=== PATIENT | female | born 1995 | race Caucasian/White ===

== ENCOUNTER → 2020-02-18 15:22 | Outpatient (CLI) | payer OTHER, SELFPAY ==
--- NOTE | 2020-02-18 15:24 | DI.US.S_ITS ---
PROCEDURE: US OB >= 14 WEEKS FETUS INDICATIONS: 20 WEEK ANATOMY OUTSIDE/PRIOR DATING DATA: Last menstrual period (LMP): 10/05/19. LMP-based estimated date of delivery (VAMSI): 07/12/20. First dating scan (date and location): 02/18/20. Estimated date of delivery (VAMSI) from first dating scan: 07/09/20. TECHNIQUE: Real-time scanning was performed of the fetus, with image documentation and biometric measurements. COMPARISON: None. FINDINGS: General: A single living intrauterine gestation is present. Presentation: Vertex. Placenta: Placental position is anterior, without previa. Amniotic fluid index: 12.4 cm, normal range is 5-24 cm. heart rate: 152 beats per minute. Maternal cervical canal: 3.4 cm long. Normal lower limit is 2.5 cm. biometrics: Biparietal diameter: 20 weeks 0 days Head circumference: 19 weeks 6 days Abdominal circumference: 19 weeks 4 days Femur length: 19 weeks 5 days Estimated gestational age from initial scan: not applicable. Composite gestational age from present scan: 19 weeks 5 days Estimated weight and percentile: 307 g; 69 percentile Measurement variability for biometric dating: +/- 7 days from 14 weeks to 15 weeks 6 days gestation, +/- 10 days from 16 weeks to 21 weeks 6 days gestation, +/- 2 weeks from 22 weeks to 27 weeks 6 days gestation, +/- 3 weeks for 28 weeks gestation or later. weight reference: 4500 g or EFW >90/95% is considered macrosomia or large for gestational age. EFW <10% is small for gestational age. EFW 5% or less is considered intra-uterine growth restriction. Anatomic survey: Neuro: Ventricles are non-dilated at less than 10 mm. Cisterna magna is normal at 3-11 mm. Cerebellum is normal in size and morphology. Nuchal skin fold: Normal at less than 6 mm between 14-21 weeks gestational age. Face: Nose and lips, facial profile are normal. Spine: No evidence for spina bifida. Heart: 4-chambered heart is present, with normal ventricular outflow tracts. Diaphragm: Diaphragm is intact. Stomach: Left-sided stomach is present. Kidneys: No hydronephrosis. Normal is less than 5 mm in 2nd trimester, less than 7 mm in 3rd trimester. Cord: 3-vessel cord has orthotopic insertion. Bladder: Normal in size. Extremities: All 4 extremities identified. IMPRESSION: Single living IUP with composite age of 19 weeks 5 days corresponding to ultrasound VAMSI of 07/09/20. Normal anatomic survey. Dictated by: eDvyn DALYE Interpreted: Promise Hope MD on 02/18/2020 at 17:12 Approved by: Promise Hope M.D. on 02/18/2020 at 17:45
== END ==
PROVIDERS: Referring Provider Obstetrics & Gynecology; Visit Provider Obstetrics & Gynecology
DX: Z34.82 Encounter for supervision of other normal pregnancy, second trimester (principal); Z3A.19 19 weeks gestation of pregnancy
CPT/HCPCS: 76811

== ENCOUNTER → 2020-03-25 10:00 | Oncology outpatient (ONC) | payer OTHER, SELFPAY ==
[2020-02-28 13:24] VITALS: BP 103/56; PULSE 86; RESP 18; TEMP 36.8; O2SAT 99
[2020-02-28] MEDS: ONDANSETRON 4 MG/2 ML INJ IV (13:42)
[2020-02-28] MEDS: LACTATED RINGERS 1,000 ML 1000 ML IV (13:42)
[2020-03-13] MEDS: LACTATED RINGERS 1,000 ML 1000 ML IV (14:48)
[2020-03-13 15:14] VITALS: BP 100/63; PULSE 87; RESP 18; TEMP 36.7; O2SAT 100
[2020-03-25] MEDS: ONDANSETRON 4 MG/2 ML INJ IV (10:19)
[2020-03-25] MEDS: LACTATED RINGERS 1,000 ML 1000 ML IV (10:19)
[2020-03-25 10:28] VITALS: BP 101/57; PULSE 93; RESP 18; TEMP 36.9; O2SAT 99
== END ==
PROVIDERS: Referring Provider Obstetrics & Gynecology; Visit Provider Obstetrics & Gynecology
DX: O21.0 Mild hyperemesis gravidarum (principal)
CPT/HCPCS: 96360; 96361; 96374; 96375; J2405

== ENCOUNTER → 2020-04-17 10:30 | Outpatient (CLI) | payer OTHER, SELFPAY ==
[2020-04-17 12:42] LABS: Hematocrit 32.5 % (36-46); Hemoglobin 11.2 g/dL (12.0-16.0)
[2020-04-17 13:17] LABS: GTT (PREG) 1 Hour PP 50gm Dose 98 mg/dL (76-139)
== END ==
PROVIDERS: Referring Provider Obstetrics & Gynecology; Visit Provider Obstetrics & Gynecology
DX: Z34.02 Encounter for supervision of normal first pregnancy, second trimester (principal); Z3A.25 25 weeks gestation of pregnancy
CPT/HCPCS: 36415; 82950; 85014; 85018; 86850

== ENCOUNTER 2020-04-21 09:21 | Outpatient (CLI) | payer OTHER, SELFPAY ==
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
== END 2020-04-21 09:55 | disposition home or self-care (01) ==
LOC: LABOR 09:59 → OB 12:29
PROVIDERS: PCP Obstetrics & Gynecology; Referring Provider Obstetrics & Gynecology; Visit Provider Obstetrics & Gynecology
DX: O36.8130 Decreased fetal movements, third trimester, not applicable or unspecified (principal); Z3A.28 28 weeks gestation of pregnancy
CPT/HCPCS: 59025; G0378; G0379

== ENCOUNTER → 2020-06-11 13:52 | Outpatient (CLI) | payer OTHER, SELFPAY ==
[2020-06-12 21:14] LABS: COVID19 Sendout Not Detected (Not Detect)
== END ==
PROVIDERS: PCP Obstetrics & Gynecology; Visit Provider Nurse Practitioner
DX: Z11.59 Encounter for screening for other viral diseases (principal); R50.9 Fever, unspecified
CPT/HCPCS: 87070; 87635

== ENCOUNTER 2020-06-11 14:39 | Outpatient (CLI) | payer OTHER, SELFPAY | END 2020-06-11 15:30 | disposition home or self-care (01) | LOC: LABOR 15:24 → OB 06-12 14:49 | PROVIDERS: PCP Obstetrics & Gynecology; Referring Provider Obstetrics & Gynecology; Visit Provider Obstetrics & Gynecology | DX: O36.8130 Decreased fetal movements, third trimester, not applicable or unspecified (principal); O47.03 False labor before 37 completed weeks of gestation, third trimester; Z3A.35 35 weeks gestation of pregnancy; Z11.59 Encounter for screening for other viral diseases; R50.9 Fever, unspecified | CPT/HCPCS: 59025; 87070; 87635; G0378; G0379 ==

== ENCOUNTER → 2020-06-16 11:44 | Outpatient (CLI) | payer OTHER, SELFPAY ==
[2020-06-17 07:40] LABS: Strep Grp B PCR NEG for Grp B Strep
== END ==
PROVIDERS: PCP Obstetrics & Gynecology; Visit Provider Obstetrics & Gynecology
DX: Z34.03 Encounter for supervision of normal first pregnancy, third trimester (principal); Z3A.36 36 weeks gestation of pregnancy
CPT/HCPCS: 87653

== ENCOUNTER 2020-06-23 13:35 | Inpatient (IN) | payer OTHER, SELFPAY ==
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
[2020-06-23 14:50] LABS: Add Manual Diff / Slide Review NO; Basophils Absolute Auto 100 /uL (0-100); Basophils Percent Auto 0.6 % (0-2); Eosinophils Absolute Auto 100 /uL (0-450); Eosinophils Percent Auto 0.7 % (2-4); Hematocrit 32.2 % (36-46); Hemoglobin 11.2 g/dL (12.0-16.0); Lymphocytes Absolute Auto 1800 /uL (1100-4500); Lymphocytes Percent Auto 16.7 % (25-40); Mean Corpuscular HGB Conc 34.7 % (30-36); Mean Corpuscular Hemoglobin 29.7 PG (26-34); Mean Corpuscular Volume 85.6 fL (80-100); Monocytes Absolute Auto 800 /uL (0-900); Monocytes Percent Auto 7.4 % (3-14); Neutrophils Absolute Auto 8100 /uL (1500-7000); Neutrophils Percent Auto 74.6 % (50-75); Platelet Count 325 X10^3/uL (150-400); Red Blood Cell Count 3.76 X10^6/uL (4.0-5.2); Red Cell Distribution Width 13.3 % (11.6-14.8); White Blood Cell Count 10.8 X10^3/uL (4.5-11.0)
--- NOTE | 2020-06-23 18:06 | PM.OBPNLAB ---
Date/Time Date Patient Seen: 06/23/20 Time Patient Seen: 17:15 Pain Control Pain control: tolerating well Pelvic Exam Dilation (cm): 1 Effacement (%): 75 station: -2 Contractions Contractions on admission: irregular Contraction intensity: Moderate Status status: Category l Heart Rate Baseline: 135 Monitor Accelerations: Present Monitor Decelerations: Absent Monitor Variability: Moderate Assessment and Plan Comments: This patient continues to have dark red vaginal bleeding on wiping, with a decreased but still moderate amount of blood on repeat cervical exam. No cervical changes been Rachel, and her contractions are spacing somewhat though she reports irregular cramping throughout her lower abdomen. status remains highly reassuring, and we discussed starting a clear liquid diet. We discussed the patient remaining in-house overnight for continuous monitoring, and discussed that she has may still require emergent delivery if this is in fact an abruption that progresses vs. Pre term labor. The patient and her partner vocalized understanding, and are happy with this plan. - cEFM, toco overnight - alert attending physician immediately if change in maternal or status
[2020-06-24] VITALS (7 sets, daily range): BP systolic 91–101; BP diastolic 50–62; PULSE 70–160; RESP 10–40; TEMP 36.2–36.4; O2SAT 95–98
--- NOTE | 2020-06-24 | PATH_ITS ---
[place] Accession Number: [id number] . 01 Material submitted: . placenta - PLACENTA . 01 Clinical history: . NST . 02 Diagnosis: Placenta: . Placenta parenchyma: Griffiths placenta, weight 930 grams. Patchy disruption of cotyledons, suggestive of possible incomplete placenta by gross examination. Variable chorionic villous maturation. Mild to moderate intra and intervillous fibrin is present. Fibrin clot (1.5 cm), involves less than 5% of the placental disc volume. . Membranes: Circummarginate insertion. Rare neutrophils present, suggestive of possible very mild, focal chorioamnionitis. . Umbilical cord: Eccentrically inserted. 28 cm in length. Three vessels present. No funisitis identified. MRV 06/26/2020 1051 Local . 02 Electronically signed: . Lana Dunlap MD, Pathologist NPI- [id number] . 01 Gross description: . The specimen is received in formalin, labeled placenta and consists of a 930 gram, 20.0 x 18.0 x 3.0 cm griffiths placenta with an eccentrically inserted 28 cm in length x 1.5 cm in diameter three vessel umbilical cord without true knots. The membranes are clement-pink, translucent and insert circummarginate. The surface is sears-blue without excrescences. The maternal surface is red-brown with a 2.5 x 1.5 cm irregular area of disrupted cotyledons. The remaining cotyledons are intact. Sectioning reveals red-brown cut surfaces with a 1.5 x 1.0 x 1.0 cm clement-yellow laminated and hemorrhagic thrombus located 5 cm from the disc margin. Bricklayer Apprentice sections are submitted. . A1 - Cross-sections of umbilical cord. A2 - Membrane rolls and surface. A3 - Disrupted cotyledons. A4 - Bricklayer Apprentice thrombus. A5 - Full thickness placenta. ([id number]) /[facility] 06/25/2020 1724 Local . 02 Pathologist provided ICD-10: O43.90 . 02 CPT . 192083 Performed at: 01 [facility] the [facility] [address] [id number] MD Mickey Fuentes MD Phone: [phone] Performed at: 02 [facility] [address] [place] [address] [id number] MD Kassie Bowers MD Phone: [phone]
--- NOTE | 2020-06-24 08:27 | PM.OBPNLAB ---
Date/Time Date Patient Seen: 06/24/20 Time Patient Seen: 07:45 Pain Control Comments: This patient remains admitted for evaluation of likely partial placental abruption. The patient reports that she continues to have sharp, shooting abdominal pains from the fundus down to the lower uterine segment every 1-2 minutes, during which she reports that her abdomen gets hard. She reports that these pains do not build, last 30-45 seconds, and decrease like other contractions that she has had. She has been primarily in bed for most of the night, but did not notice any further bleeding on wiping when she last got up to urinate. She reports good movement. She reports that the top of her belly has become tender overnight. She has an anterior/fundal placenta. Vital signs are stable and have been throughout her stay. Pelvic Exam Dilation (cm): 1 Effacement (%): 75 station: -2 Contractions Contractions on admission: regular Contraction frequency (min): 5 Contraction pattern: Irregular Contraction intensity: Moderate Status status: Category l Heart Rate Baseline: 140 Monitor Accelerations: Present Monitor Decelerations: Absent Monitor Variability: Moderate Assessment and Plan Plan: Comments: This patient's cervix remains unchanged, and she has signs and symptoms of ongoing mild placental abruption. The patient presented having passed blood clots yesterday, with confirmation of liquified dark red vaginal bleeding on speculum exam on presentation. Her bleeding has decreased but not completely stopped, and the character remains unchanged. The patient has not made significant cervical change since admission, and the character her bleeding is less consistent with bloody show. The patient had uterine irritability and Q 1-2 minute contractions on admission, which have spaced but not decreased. The patient reports continuing to feel sharp shooting pains throughout her uterus. This morning, the patient is mildly tender at the fundus, the location of her placenta, also concerning for abruption. I discussed with the patient that given concern for abruption and that she is term, I would recommend delivery rather than discharge with expectant management. We discussed that delivery in the early term period carries risk of respiratory issues and need to transfer to a higher level of care, the long-term outcomes are generally similar to late term babies. The patient and her partner agreed with the decision to deliver, and conversation then turned to discussion of mechanism. status has been reassuring throughout her admission, and we discussed that a small abruption in the setting of reassuring and maternal status is not a contraindication to attempted vaginal delivery. We discussed that I would recommend augmentation with Pitocin, with potential AROM during the course of her induction. We discussed that induction in the setting of placental abruption carries the risk of worsening abruption, with possible need for emergent section and potential for risk to mother and baby. We also discussed that patients often vaginally deliver despite the abruption, and that she would be continuously monitored with proximity to an operating room. We discussed that the alternative would be proceeding to section, as expeditiously as possible though not emergently given the reassuring and maternal status. We discussed that risks of section include hemorrhage, damage to bowel and bladder, infection, and risks to subsequent pregnancies including abnormal placentation and uterine rupture. The patient and her partner vocalized understanding of both of their options. After extensive discussion, the patient and her partner would like to proceed with primary section in the setting of abruption, as they understand the risks subsequent pregnancies more concerned about the risk of severe abruption during labor with danger to Mom and Baby then they are about the risks of section without attempted induction. After extensive discussion of risks, benefits, options, and alternatives, informed consent was obtained and consents were signed. The patient remains NPO, and we plan to proceed with section later this morning, given reassuring maternal and status.
[2020-06-24 11:19] LABS: COVID19 -Nasal RAPID Negative (Negative)
--- NOTE | 2020-06-24 12:35 | PM.PREOP ---
Pre-operative Note COVID-19 COVID-19 status: Negative Result date/Date tested (Pos, Neg/Pending): 06/24/20 Interval Note History & Physical reviewed/Exam performed by Physician: Yes Changes to H&P: No
[2020-06-24] MEDS: CEFAZOLIN 2 GM/100 ML FROZ.PIGGY IV (13:30)
--- NOTE | 2020-06-24 13:51 | SUR.OPER ---
Supine on Padded OR bed, head on pillow, safety belt at thigh, arms secured on padded arm boards at <90 degrees abduction. Bump under right buttock. Legs uncrossed with pillow under knees, gel pad to heels, tape over blanket to lower legs.
[2020-06-24] MEDS: LACTATED RINGERS 1,000 ML 100 ML IV ×2 (14:00→20:30)
--- NOTE | 2020-06-24 14:11 | SUR.OPER ---
FHT 153 TOB at 13:51 alive male. Cord blood x 2 given to OB nurse. Placenta sent to pathology.
--- NOTE | 2020-06-24 14:40 | PM.OP.1 ---
Operative Date/Time/Diagnoses Date of procedure: 06/24/20 Time of procedure: 13:30 Pre-op diagnosis: Suspected placental abruption Post-op diagnosis: same Procedure & Clinicians Procedure: Primary section Same procedure as scheduled: Yes Indications: Suspected placental abruption Surgeon: Terri Leyva Environmental Services Specialist: Hawa Rubin Anesthesia Type: Spinal Operative Notes Findings: male infant in cephalic presentation, apgars 8+9, weight 6 lb, 15.9 oz. Normal uterus, tubes, ovaries. Closure Type: primary Specimen(s): other (Placenta) Applied: catheter Estimated Blood Loss (mL): 500 Procedure in detail: EBL: 500 cc Fluids: 1600 cc lactated Ringer's UOP: 200 cc yellow urine Procedures: The patient was taken to the operating room where spinal anesthesia was placed and found to be adequate. She was prepped and draped in the normal sterile fashion in the dorsal supine position with a leftward tilt. A Pfannenstiel skin incision was made with a scalpel and carried through to the underlying layer of fascia. The fascia was incised in the midline and the incision extended laterally with Stovall scissors. The superior aspect of this incision was grasped with Shadi clamps, elevated, and the underlying rectus muscles dissected off bluntly and with the curved Stovall scissors. Attention was then turned to the inferior aspect of this incision which, in a similar fashion, was grasped, tented up with the Shadi clamps, and the rectus muscles dissected off bluntly and with the curved Stovall scissors. The rectus muscles were then in the midline, and the peritoneum identified, tented up, and entered sharply with Metzenbaum scissors. The peritoneal incision was extended superiorly and inferiorly with good visualization of the bladder. The bladder blade was inserted and the vesicouterine peritoneum identified, grasped with pickups, and entered sharply with the Metzenbaum scissors. This incision was extended laterally, and the bladder flap created digitally. The bladder blade was then reinserted and the lower uterine segment incised in transverse fashion with the scalpel. The uterine incision was bluntly extended laterally. The bladder blade was removed, and the 's head delivered atraumatically with assistance of a vacuum. After 30 seconds of delayed cord clamping, the cord was clamped and cut. The nose and mouth were suctioned as needed with a bulb synringe, and the infant was handed off to awaiting pediatricians. The placenta was then removed spontaneously, and the uterus was exteriorized and cleared of all clots and debris. The uterine incision was repaired with 1-0 chromic in a running, locked fashion a 2nd layer of the same suture was used to obtain excellent hemostasis. The uterus was returned to the abdomen, and the gutters were cleared of all clots and debris. The bladder flap was closed with 2-0 Vicryl in a running fashion, the peritoneum was closed with 3-0 Vicryl, and the fascia reapproximated with 0 Vicryl in a running fashion. The subcutaneous layer was placed with 3 0 Vicryl in an interrupted fashion and the skin was closed with 4-0 biosyn in a running fashion. The patient tolerated the procedure well sponge lap and needle counts were correct x2. 2 g of Ancef were given at commencement of the case. The patient was taken to the recovery room in stable condition. Complications: none Post-operative Condition: stable Disposition: PACU Plan for aftercare: Routine care
--- NOTE | 2020-06-24 14:56 | SUR.PHASEI ---
Report called to
--- NOTE | 2020-06-24 15:14 | SUR.PHASEI ---
Patient transferred to the center. VS stable. Report given to Teri. Scant shadow drainage to abdominal dressing. Fundus and darrick-pad checked with RN. IV and dailey patent.
[2020-06-24] MEDS: METOCLOPRAMIDE 10 MG/2 ML INJ IV (16:45)
[2020-06-24] MEDS: diphenhydrAMINE 50 MG/ML VIAL 25 MG IV (17:11)
[2020-06-24] MEDS: KETOROLAC 30 MG/ML VIAL IV (20:43)
[2020-06-24] MEDS: OXYCODONE IR 5 MG TABLET PO (20:44)
[2020-06-24] MEDS: LANOLIN OINT 7 GM 1 APPLIC TOP (20:44)
[2020-06-25] MEDS: KETOROLAC 30 MG/ML VIAL IV ×2 (03:06→09:01)
[2020-06-25 04:03] VITALS: BP 103/65; PULSE 81; RESP 16; TEMP 36.6
[2020-06-25] MEDS: DOCUSATE 250 MG CAPSULE PO (09:01)
--- NOTE | 2020-06-25 10:09 | PM.OBPN.1 ---
Subjective - OB Subjective Patient comments: no complaints, pain well controlled and tolerating diet baby status: doing well feeding status: exclusively breast feeding Narrative: Patient is POD#1 s/p pCS for suspected abruption, recovering appropriately with good pain control, ambulating, voiding, tolerating PO. Date Patient Seen: 06/25/20 Time Patient Seen: 10:09 Exam Vital Signs (past 8 hours): 97/66, HR 83, T 98.4 Oxygen Delivery Method Room Air Const General: cooperative, healthy appearing, comfortable and acute distress Resp Effort & Inspection: normal respiratory effort Auscultation: clear to auscultation bilaterally Cardio Rate: regular rate Rhythm: regular rhythm GI Inspection: incision (c/d/i, covered by aquacell, old blood) Palpation: soft and No tender Other: fundus firm, well below u Extrem General: normal to inspection Objective Labs Result Diagrams: 06/23/20 14:40 Labs: Laboratory Results - last 24 hr 06/23/20 06/24/20 14:40 10:55 COVID-19 PCR Negative Blood Type O Negative Antibody Screen Negative Crossmatch See Detail Assessment & Plan Assessment and Plan (1) delivery delivered: Status: Acute Plan day: 1 plan OB: routine postop care Comments: Patient recovering appropriately s/p c section, for routine postop care. CBC pending. Time Spent With Patient Time: Total time spent is greater than 50% in coordination of care (as documented) at patient's floor/unit and/or counseling patient: Time with patient: 15-24 minutes
[2020-06-25] MEDS: ACETAMINOPHEN 325 MG TABLET 650 MG PO ×3 (11:38→23:29)
[2020-06-25] MEDS: IBUPROFEN 600 MG TABLET PO ×2 (17:31→23:29)
[2020-06-25 20:52] LABS: Add Manual Diff / Slide Review NO; Basophils Absolute Auto 0 /uL (0-100); Basophils Percent Auto 0.3 % (0-2); Eosinophils Absolute Auto 100 /uL (0-450); Eosinophils Percent Auto 0.6 % (2-4); Hematocrit 30.2 % (36-46); Hemoglobin 10.1 g/dL (12.0-16.0); Lymphocytes Absolute Auto 1900 /uL (1100-4500); Lymphocytes Percent Auto 16.6 % (25-40); Mean Corpuscular HGB Conc 33.4 % (30-36); Mean Corpuscular Volume 86.9 fL (80-100); Monocytes Absolute Auto 1000 /uL (0-900); Neutrophils Absolute Auto 8400 /uL (1500-7000); Neutrophils Percent Auto 73.5 % (50-75); Platelet Count 265 X10^3/uL (150-400); Red Blood Cell Count 3.48 X10^6/uL (4.0-5.2); Red Cell Distribution Width 13.5 % (11.6-14.8); White Blood Cell Count 11.5 X10^3/uL (4.5-11.0)
[2020-06-26] MEDS: ACETAMINOPHEN 325 MG TABLET 650 MG PO (07:48)
[2020-06-26] MEDS: IBUPROFEN 600 MG TABLET PO (07:49)
[2020-06-26] MEDS: DOCUSATE 250 MG CAPSULE PO (07:49)
--- NOTE | 2020-06-26 08:30 | P.DS_ITS ---
Discharge Providers Provider Date of admission: 06/23/20 13:35 Discharge Date: 06/26/20 Primary care physician: Terri Leyva MD Consults: 06/24/20 15:30 Consult to Mold Press Operator Routine Comment: Discharge provider: Terri Leyva MD Summary Hospital Course Date Patient Seen: 06/26/20 Time Patient Seen: 08:20 Procedures: Primary section Hospital Course: This patient is a 24-year-old now para 1 postop day 2 status post primary claire arean section for suspected placental abruption. The patient is recovering well, meeting all postoperative goals appropriately, with normal and stable vitals and appropriate hemoglobin drop. Peripartum Data Delivery Method: Section Laceration Description: None Procedures: Primary section complications: none [place] 1: Gender: Male Disposition of : home Discharge Diagnosis (1) delivery delivered: Status: Acute Status at Discharge Cognitive/behavioral status at discharge: oriented Functional status at discharge: independent ambulation Overall status at discharge: patient is progressing back to baseline Time Spent with Patient Time attestation: Total time spent providing and/or coordinating discharge services: Objective Labs Result Diagrams: 06/25/20 20:47 Labs: Laboratory Results - last 24 hr 06/25/20 20:47 WBC 11.5 H RBC 3.48 L Hgb 10.1 L Hct 30.2 L MCV 86.9 MCH 29.0 MCHC 33.4 RDW 13.5 Plt Count 265 Neut % (Auto) 73.5 Lymph % (Auto) 16.6 L [place] % (Auto) 9.0 Eos % (Auto) 0.6 L Baso % (Auto) 0.3 Neut # (Auto) 8400 H Lymph # (Auto) 1900 [place] # (Auto) 1000 H Eos # (Auto) 100 Baso # (Auto) 0 Exam Vital Signs (past 8 hours): Vital signs stable Oxygen Delivery Method Room Air Narrative Exam Narrative: Patient resting in bed with baby. Tolerating p.o., reports ambulating, voiding, passing flatus, mild lochia, no chest pain, headaches, trouble breathing, other complaints. Const General: cooperative, healthy appearing, comfortable and acute distress Resp Effort & Inspection: normal respiratory effort Auscultation: clear to auscultation bilaterally Cardio Rate: regular rate Rhythm: regular rhythm GI Inspection: incision (Covered by incision, some old blood) Palpation: soft and No tender Other: Fundus firm, 1 below U Skin General: no rashes or lesions noted Extrem General: normal to inspection Discharge Plan Discharge Plan Patient Disposition: Home Provider Discharge Comment: Appointment with on on at 1:45 for aquacell removal. clinic on Monday, July 02 at 10:00 am. Nursing Discharge Comment: Valente Ceja's delivered on 06/24/2020; he is the primary caregiver for his and israel while she is recovering from her surgery and should be back to work on July. Discharge orders & Medications Prescriptions: New oxycodone 5 mg tablet 5 mg PO Q6H PRN (Reason: pain) Qty: 14 RF: 0 Continued prenat.vits,lolis,gxt-tuzx-iadvg Tablet 1 tab PO DAILY RF: 0 Discontinued promethazine 12.5 mg suppository 12.5 mg WI Q6H PRN (Reason: Vomiting) RF: 0 pyridoxine (vitamin B6) 25 mg tablet 25 mg PO TID RF: 0 docusate calcium [Surfak] 240 mg capsule 240 mg PO BID RF: 0 ondansetron HCl [Zofran] 4 mg tablet 4 mg PO Q8H RF: 0 Unisom (doxylamine) 25 mg tablet 25 mg PO BEDTIME PRN (Reason: Sleep) RF: 0 omeprazole 20 mg capsule,delayed release(DR/EC) 20 mg PO BID Qty: 90 RF: 0 Follow up/Referrals: Terri Leyva MD [Primary Care Provider] - 1 Week (Appointment with on Saturday, June 30 at 1:45 pm for aqacell removal. appointment for mom and leilanie on Monday, July 02 at !0:00 am) Diet/Activity/Treatments Diet: Regular Activity: Nothing in the vagina for 6 weeks. Avoid lifting more than 10 lbs for 6 weeks. If you have increasing bleeding, fevers, chills, nausea, vomiting, headaches, or any other symptoms, call or come to the emergency room. Skin/Wound/Dressing Care Report to your healthcare provider any signs of infection, such as:: chills, fever, night sweats, increased pain, unusual drainage and unusual redness Visit Report/Discharge Packet Instructions: DI for Visit Report Forms: Patient Portal/API, Stroke Signs & Symptoms Discharge Data Primary Care Provider: Terri Leyva Discharges patient from system. Discharge Date/Time: 06/26/20 12:53
== END 2020-06-26 12:53 | disposition home or self-care (01) | DRG 788 ==
PROVIDERS: Admitting Provider Obstetrics & Gynecology; PCP Obstetrics & Gynecology; Referring Provider Obstetrics & Gynecology; Visit Provider Obstetrics & Gynecology
PROC: 10D00Z1 Extraction of Products of Conception, Low, Open Approach (ICD-10-PCS; CPT 59514; principal; 2020-06-24 12:45)
DX: O43.93 Unspecified placental disorder, third trimester (principal); Z3A.37 37 weeks gestation of pregnancy; Z37.0 Single live birth
CPT/HCPCS: 36415; 59025; 59050; 59510; 59514; 76815; 85025; 86850; 86900; 86901; 87635; G0379; J0690; J1200; J1885; J2274; J2405; J2590; J2765

== ENCOUNTER → 2021-01-05 10:00 | Outpatient (CLI) | payer OTHER, SELFPAY ==
[2021-01-05 10:57] LABS: COVID19 -Nasal RAPID Negative (Negative)
== END ==
PROVIDERS: Visit Provider Surgery
DX: Z20.822 Contact with and (suspected) exposure to COVID-19 (principal)
CPT/HCPCS: 87635; C9803

== ENCOUNTER 2021-01-06 10:38 | Day surgery (SDC) | payer OTHER, SELFPAY ==
[2021-01-06] VITALS (16 sets, daily range): BP systolic 94–150; BP diastolic 40–89; PULSE 47–78; RESP 8–20; TEMP 36.3–36.6; O2SAT 96–100
--- NOTE | 2021-01-06 | PATH_ITS ---
[facility] Accession Number: [id number] . 01 Material submitted: . gallbladder - GALLBLADDER . 02 Diagnosis: Gallbladder, Cholecystectomy: Chronic cholecystitis. No choleliths identified. Negative for dysplasia and malignancy. [facility] 01/12/2021 1453 Local . 02 Electronically signed: . Kassie Bowers MD, Pathologist NPI- [id number] . 01 Gross description: . The specimen is received in formalin, labeled gallbladder and consists of a 6.5 x 3.0 x 2.8 cm intact gallbladder with a 0.2 cm in diameter cystic duct. The serosa is sears-green and smooth. Opening reveals green viscous bile with no choleliths identified. The mucosa is green and velvety and the wall thickness measures 0.1 cm. Sensor Specialist sections are submitted to include the en face cystic duct margin (blue) in cassette A1. ([id number]) /[facility] 01/08/2021 1052 Local . 02 Pathologist provided ICD-10: K81.1 . 02 CPT . 786243 Performed at: 01 [facility] Cyt[facility] [address] [facility] [address], [place], [place] [id number] MD Mickey Fuentes MD Phone: [phone] Performed at: 02 [facility] [address] [place], [place] [id number] MD Kassie Bowers MD Phone: [phone]
[2021-01-06] MEDS: ACETAMINOPHEN 325 MG TABLET 975 MG PO (11:11)
[2021-01-06] MEDS: SCOPOLAMINE 1 PATCH TOP (11:11)
[2021-01-06] MEDS: GABAPENTIN 300 MG CAPSULE PO (11:11)
[2021-01-06] MEDS: LACTATED RINGERS 1,000 ML 42 ML IV (11:12)
--- NOTE | 2021-01-06 12:41 | PM.PREOP ---
Pre-operative Note Interval Note History & Physical reviewed/Exam performed by Physician: Yes Changes to H&P: No
--- NOTE | 2021-01-06 13:33 | SUR.OPER ---
Supine on padded OR bed, head on pillow, safety belt at thigh, left arm padded and tucked at side. Right arm secured on padded arm oard <90 degrees abduction. Legs uncrossed. Padded footboard in place. Tape over blanket to secure lower legs.
[2021-01-06] MEDS: CEFAZOLIN 1 GM VIAL 2 GM IV (13:45)
[2021-01-06] MEDS: BUPIVACAINE 0.25% (PF) VIAL 30 ML INJ (13:46)
--- NOTE | 2021-01-06 14:23 | PM.OP.1 ---
Operative Date/Time/Diagnoses Date of procedure: 01/06/21 Time of procedure: 14:23 Pre-op diagnosis: Biliary colic Post-op diagnosis: same Procedure & Clinicians Procedure: Laparoscopic cholecystectomy Same procedure as scheduled: Yes Indications: Biliary colic Surgeon: Kevin Tejada Anesthesia Type: General Operative Notes Findings: Critical view of safety. No acute cholecystitis Specimen(s): other (Gallbladder) Estimated Blood Loss (mL): 20 Procedure in detail: The patient was placed supine on the table and bilateral lower extremity compression devices were applied. Anesthesia was induced they were intubated with an endotracheal tube and received 2g of Ancef. A time-out was performed. They were prepped and draped in sterile fashion. An infraumbilical incision was made, the umbilical stalk was elevated and the fascia was sharply incised entering the abdomen atraumatically. A blunt tip 12mm balloon trocar was then inserted, pneumoperitoneum was established and inspection of the abdomen demonstrated no evidence of injury. They were placed head up and right side up and then a 11 mm port was placed high in the epigastrium and two 5mm in the right upper quadrant. No evidence of acute cholecystitis. The gallbladder was grasped by the fundus and retracted over the liver and retracted laterally by the infundibulum. Using electrocautery the lateral plane between the gallbladder and the liver was opened towards the fundus. The gallbladder was then retracted laterally and the medial plane was developed in the same manner. With the gallbladder mobilized the bottom of the cystic plate was visualized. The hepatocystic triangle was meticulosly skeletonized using hook electrocautery of all fat and fibrous tissue from both the front and the back. Only two structures were then clearly seen entering the gallbladder the cystic duct and the cystic artery. With the critical view of safety fully established the cystic duct was clipped twice proximally and once distally using the 10 mm clip applied under direct visualization and then sharply divided. The cystic artery was divided in the same fashion. The gallbladder was removed from the liver bed using electro cautery. The liver bed was then inspected for hemostasis and this was achieved. The abdomen was irrigated with sterile saline and inspection was made that showed the clips in good position. The specimen was removed using Endo-Catch. The abdomen was desufflated. The umbilical fascia was closed with 0 Vicryl in a rlegrw-ul-fzaov fashion under direct visualization. Skin incisions were irrigated and closed with 4-0 Monocryl. 30 ml of 0.25% bupivacaine was infiltrated into the subcutaneous tissue of the incisions. The wounds were sealed with Dermabond. Patient emerged from anesthesia was extubated and transferred to recovery in stable condition. The sponge and instrument count at the end of the operation was correct. Complications: none Post-operative Condition: stable Disposition: same day surgery
[2021-01-06] MEDS: OXYCODONE IR 5 MG TABLET PO ×2 (14:54→15:29)
[2021-01-06] MEDS: ONDANSETRON 4 MG/2 ML INJ IV (14:54)
== END 2021-01-06 16:12 | disposition home or self-care (01) ==
PROVIDERS: Admitting Provider Anesthesiology; Referring Provider Surgery; Visit Provider Surgery
PROC: 0FT44ZZ Resection of Gallbladder, Percutaneous Endoscopic Approach (ICD-10-PCS; CPT 47562; principal; 2021-01-06 11:45)
DX: K80.50 Calculus of bile duct without cholangitis or cholecystitis without obstruction (principal); R73.03 Prediabetes; R51.9 Headache, unspecified
CPT/HCPCS: 47562; 81025; J0690; J1100; J1885; J2250; J2405; J2704

== ENCOUNTER 2022-04-09 11:41 | Emergency (ER) | payer OTHER, SELFPAY ==
[2022-04-09 11:57] VITALS: BP 117/57; PULSE 83; RESP 14; TEMP 35.9; O2SAT 99; BMI 27.4
[2022-04-09 12:18] VITALS: BP 113/63; PULSE 84; TEMP 37.1; O2SAT 98
[2022-04-09 12:39] VITALS: PULSE 90; O2SAT 99
--- NOTE | 2022-04-09 12:44 | PC.NURSE ---
Pt states she is 10 weeks , first ultrasound is scheduled for next week. Onset of N/V last night, feeling shakey. Abdominal cramping since beginning of , worsening since yesterday. With first , pt had N/V and required weekly appointments for fluids starting at 6 weeks. Pt reports anxiety regarding d/t complication with placenta at 37 weeks of her last .
[2022-04-09 12:51] LABS: Add Manual Diff / Slide Review NO; Basophils Absolute Auto 0 /uL (0-100); Basophils Percent Auto 0.3 % (0-2); Eosinophils Absolute Auto 0 /uL (0-450); Eosinophils Percent Auto 0.2 % (2-4); Hematocrit 37.8 % (36-46); Hemoglobin 13.6 g/dL (12.0-16.0); Lymphocytes Absolute Auto 1400 /uL (1100-4500); Lymphocytes Percent Auto 14.3 % (25-40); Mean Corpuscular HGB Conc 36.1 % (30-36); Mean Corpuscular Hemoglobin 30.1 PG (26-34); Mean Corpuscular Volume 83.4 fL (80-100); Monocytes Absolute Auto 600 /uL (0-900); Monocytes Percent Auto 6.2 % (3-14); Neutrophils Absolute Auto 7600 /uL (1500-7000); Platelet Count 291 X10^3/uL (150-400); Red Blood Cell Count 4.53 X10^6/uL (4.0-5.2); Red Cell Distribution Width 13.5 % (11.6-14.8); White Blood Cell Count 9.6 X10^3/uL (4.5-11.0)
[2022-04-09 13:01] LABS: Alanine Aminotransferase 15 IU/L (<35); Albumin 4.3 g/dL (3.5-5.0); Albumin Globulin Ratio 1.3 (1.0-2.8); Alkaline Phosphatase 73 U/L (38-126); Aspartate Aminotransferase 22 IU/L (14-36); BUN Creatinine Ratio 19.6 (6-22); Bilirubin Total 0.5 mg/dL (0.2-1.3); Blood Urea Nitrogen 9 mg/dL (7-17); Calcium 9.4 mg/dL (8.4-10.2); Carbon Dioxide 25 mmol/L (22-32); Chloride 101 mmol/L (98-107); Estimated Glomerular Filt Rate > 60 mL/min (>60); Globulin 3.3 g/dL (1.7-4.1); Glucose 90 mg/dL (70-100); HEMOLYSIS < 15 (0-50); Potassium 3.6 mmol/L (3.4-5.1); Sodium 137 mmol/L (137-145); Total Protein 7.6 g/dL (6.3-8.2)
[2022-04-09 13:36] LABS: Bacteria Urine None Seen; Culture Indicated Urine Cult Not Indicated; Mucus Urine 2+ (Negative); RBC Urine None Seen (0-5/HPF); Squamous Epithelial Cell Urine 1-5 /HPF (0-5/HPF); WBC Urine 0-1/HPF (0-5/HPF)
--- NOTE | 2022-04-09 13:59 | DI.US.S_ITS ---
PROCEDURE: US OB <= 14 WEEKS FETUS INDICATIONS: CRAMPING OUTSIDE/PRIOR DATING DATA: Last menstrual period (LMP): 01/29/2022. LMP-based estimated date of delivery (VAMSI): 11/05/2022. First dating scan (date and location): 04/09/2022 at . Estimated date of delivery (VAMSI) from first dating scan: 11/09/2022. TECHNIQUE: Real-time scanning was performed of the fetus and maternal pelvic organs, with image documentation. Endovaginal scanning was also performed to better visualize the fetus and maternal ovaries. COMPARISON: None. FINDINGS: Single living IUP is present. There is a normal appearing yolk sac. Perigestational bleed measures 3.5 x 1.7 x 1.0 cm. Embryo: 2.7 cm; 9 weeks 3 days. Heart rate: 178 BPM Maternal organs: Right ovary appears normal, visualized on transabdominal scan only. Left ovary is not identified. IMPRESSION: 1. A single living intrauterine gestation with an estimated gestational age of 9 weeks 3 days corresponding to ultrasound VAMSI 11/09/2022. 2. There is a 3.5 x 1.7 x 1.0 cm projects stone bleeding site. We strive to produce accurate, complete, and clear reports of imaging services. To assist us in improving patient care, this report was composed using standard report templates and voice recognition software. Therefore, it may contain abnormal punctuation, insertions and/or omissions. Occasional wrong-word or sound-alike substitutions may occur. Though we review the report and make efforts to correct it, we do recommend that the report be read carefully in proper context to recognize any text inaccuracies. Dictated by: Catracho Haywood M.D. on 04/09/2022 at 15:44 Approved by: Catracho Haywood M.D. on 04/09/2022 at 15:47
[2022-04-09 14:00] VITALS: PULSE 67; O2SAT 100
[2022-04-09 14:01] VITALS: BP 108/62; PULSE 79; O2SAT 100
[2022-04-09] MEDS: SODIUM CHLORIDE 0.9% 1,000 ML 1000 ML IV (14:08)
[2022-04-09] MEDS: ONDANSETRON 4 MG/2 ML INJ IV (14:08)
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
== END 2022-04-09 16:08 | disposition home or self-care (01) ==
PROVIDERS: Family Medicine; Emergency Provider Emergency Medicine
DX: O21.0 Mild hyperemesis gravidarum (principal); Z3A.10 10 weeks gestation of pregnancy
CPT/HCPCS: 36415; 76801; 76817; 80053; 81003; 81015; 85025; 96361; 96374; 99284; J2405

== ENCOUNTER → 2022-05-05 14:02 | Outpatient (CLI) | payer OTHER, SELFPAY ==
[2022-05-05 15:21] LABS: Appearance Urine UA CLEAR; Bilirubin Urine UA NEGATIVE (NEGATIVE); Color Urine UA YELLOW; Glucose Urine UA NEGATIVE (Negative); Ketones Urine UA TRACE (NEGATIVE); Leukocyte Esterase Urine UA NEGATIVE (NEGATIVE); Nitrite Urine UA NEGATIVE (Negative); Occult Blood Urine UA TRACE-LYSED (Negative); Protein Urine UA NEGATIVE (Negative); Specific Gravity Urine UA 1.025 (1.000-1.035); Urobilinogen Urine UA 0.2 E.U./dL (0.2)
[2022-05-05 15:31] LABS: pH Urine UA 5.5 (4.5-8.0)
[2022-05-05 15:46] LABS: Add Manual Diff / Slide Review NO; Basophils Absolute Auto 0 /uL (0-100); Basophils Percent Auto 0.3 % (0-2); Eosinophils Absolute Auto 100 /uL (0-450); Eosinophils Percent Auto 0.5 % (2-4); Hematocrit 37.7 % (36-46); Hemoglobin 13.5 g/dL (12.0-16.0); Lymphocytes Absolute Auto 1900 /uL (1100-4500); Lymphocytes Percent Auto 18.7 % (25-40); Mean Corpuscular HGB Conc 35.7 % (30-36); Mean Corpuscular Hemoglobin 30.1 PG (26-34); Mean Corpuscular Volume 84.1 fL (80-100); Monocytes Absolute Auto 500 /uL (0-900); Monocytes Percent Auto 5.4 % (3-14); Neutrophils Absolute Auto 7600 /uL (1500-7000); Neutrophils Percent Auto 75.1 % (50-75); Platelet Count 304 X10^3/uL (150-400); Red Blood Cell Count 4.48 X10^6/uL (4.0-5.2); Red Cell Distribution Width 13.8 % (11.6-14.8); White Blood Cell Count 10.1 X10^3/uL (4.5-11.0)
[2022-05-06 16:44] LABS: Hepatitis B Surface Antigen NEGATIVE s/c (NEGATIVE); Rubella Antibody IgG 14.5 IU/mL (>15)
[2022-05-06 17:08] LABS: HIV 1 & 2 Ab/Ag 4th Gen Combo NEGATIVE (NEGATIVE); Hep C Virus Ab w/Reflex Quant NEGATIVE s/c (NEGATIVE)
[2022-05-07 04:55] LABS: RPR Screen Non Reactive (Non Reactive)
[2022-05-07 08:31] LABS: Varicella IgG Antibody <135 index (Immune >165)
== END ==
PROVIDERS: Referring Provider Obstetrics & Gynecology; Visit Provider Obstetrics & Gynecology
DX: Z34.81 Encounter for supervision of other normal pregnancy, first trimester (principal); Z36.0 Encounter for antenatal screening for chromosomal anomalies
CPT/HCPCS: 36415; 80055; 81003; 86787; 86803; 86850; 86900; 86901; 87086; 87389

== ENCOUNTER → 2022-05-17 15:16 | Outpatient (CLI) | payer OTHER, SELFPAY ==
[2022-05-17 20:13] LABS: Urine N gonorrhoeae NOT DETECTED
[2022-05-17 20:45] LABS: Urine Chlamydia NOT DETECTED
== END ==
PROVIDERS: Visit Provider Obstetrics & Gynecology
DX: Z34.82 Encounter for supervision of other normal pregnancy, second trimester (principal); Z3A.15 15 weeks gestation of pregnancy
CPT/HCPCS: 87491; 87591

== ENCOUNTER → 2022-06-25 10:35 | Outpatient (CLI) | payer OTHER, SELFPAY ==
--- NOTE | 2022-06-25 10:36 | DI.US.S_ITS ---
PROCEDURE: US OB >= 14 WEEKS FETUS INDICATIONS: anatomy scan OUTSIDE/PRIOR DATING DATA: Last menstrual period (LMP): 01/29/22. LMP-based estimated date of delivery (VAMSI): 11/05/22. First dating scan (date and location): 04/09/22. Estimated date of delivery (VAMSI) from first dating scan: 11/09/22. The calculations are made using the first-trimester ultrasound VAMSI of 11/09/22. TECHNIQUE: Real-time scanning was performed of the fetus, with image documentation and biometric measurements. Endovaginal scanning: Not performed COMPARISON: [facility], , OB <= 14 WEEKS FETUS, 04/16/2022, 13:56. [facility], OB <= 14 WEEKS FETUS, 04/09/2022, 14:17. [facility], OB >= 14 WEEKS FETUS, 05/17/2022, 16:16. FINDINGS: General: A single living intrauterine gestation is present. Presentation: Cephalic. Placenta: Placental position is anterior and fundal , without previa. Amniotic fluid index: 12.1 cm, normal range is 5-24 cm. Single deepest vertical pocket is 4.1 cm. heart rate: 147 beats per minute. Maternal cervical canal: Closed and 3.2 cm long. Normal lower limit is 2.5 cm. biometrics: Biparietal diameter: 4.9 cm, 20 weeks, five days Head circumference: 18.2 cm, 20 weeks, four days Abdominal circumference: 16.9 cm, 22 weeks, 0 days Femur length: 3.4 cm, 20 weeks, five days Initially estimated gestational age: 20 weeks three days Composite gestational age from present scan: 21 weeks 0 days Estimated weight and percentile: 412 g, 88th percentile Anatomic survey: Neuro: Ventricles are non-dilated at less than 10 mm. Cisterna magna is normal at 3-11 mm. Cerebellum is normal in size and morphology. Nuchal skin fold: Normal at less than 6 mm between 14-21 weeks gestational age. Face: Nose and lips, facial profile are normal. Spine: No evidence for spina bifida. Heart: 4-chambered heart is present, with normal ventricular outflow tracts. Diaphragm: Diaphragm is intact. Stomach: Left-sided stomach is present. Kidneys: No hydronephrosis. Normal is less than 5 mm in 2nd trimester, less than 7 mm in 3rd trimester. Cord: 3-vessel cord has orthotopic insertion. Bladder: Normal in size. Extremities: All 4 extremities identified. IMPRESSION: 1. Single living intrauterine with appropriate growth since the prior studies. 2. Composite gestational age by today's measurements is four days ahead of the previously assigned gestational age. 3. Estimated weight at the 88th percentile. 4. Normal anatomy. We strive to produce accurate, complete, and clear reports of imaging services. To assist us in improving patient care, this report was composed using standard report templates and voice recognition software. Therefore, it may contain abnormal punctuation, insertions and/or omissions. Occasional wrong-word or sound-alike substitutions may occur. Though we review the report and make efforts to correct it, we do recommend that the report be read carefully in proper context to recognize any text inaccuracies. Dictated by: eRnetta Li M.D. on 06/25/2022 at 15:46 Approved by: Renetta Li M.D. on 06/25/2022 at 15:56
== END ==
PROVIDERS: Referring Provider Obstetrics & Gynecology; Visit Provider Obstetrics & Gynecology
DX: Z34.82 Encounter for supervision of other normal pregnancy, second trimester (principal); Z3A.21 21 weeks gestation of pregnancy
CPT/HCPCS: 76811

== ENCOUNTER 2022-07-11 17:10 | Emergency (ER) | payer OTHER, SELFPAY ==
[2022-07-11 17:25] VITALS: BP 132/69; PULSE 129; RESP 16; TEMP 37.3; O2SAT 98; BMI 27.8
[2022-07-11 18:24] LABS: Influenza A - CEPHEID Flu A POSITIVE (NEGATIVE); Influenza B - CEPHEID Flu B NEGATIVE (NEGATIVE); Respiratory Syncytial Virus Negative (Negative)
[2022-07-11 18:27] LABS: COVID-19 CEPHEID 4-PLEX PCR Negative (Negative)
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
[2022-07-11 19:09] VITALS: BP 128/74; PULSE 110; RESP 16; O2SAT 97
== END 2022-07-11 19:10 | disposition home or self-care (01) ==
PROVIDERS: Emergency Medicine; Emergency Provider Physician Assistant Medical
DX: J10.1 Influenza due to other identified influenza virus with other respiratory manifestations (principal); Z20.822 Contact with and (suspected) exposure to COVID-19
CPT/HCPCS: 0241U; 99281; 99282

== ENCOUNTER → 2022-07-29 13:17 | Outpatient (CLI) | payer OTHER, SELFPAY ==
[2022-07-29 15:16] LABS: Hematocrit 32.7 % (36-46); Hemoglobin 11.5 g/dL (12.0-16.0)
[2022-07-29 15:52] LABS: GTT (PREG) 1 Hour PP 50gm Dose 149 mg/dL (76-139)
== END ==
PROVIDERS: Referring Provider Obstetrics & Gynecology; Visit Provider Obstetrics & Gynecology
DX: Z34.92 Encounter for supervision of normal pregnancy, unspecified, second trimester (principal)
CPT/HCPCS: 36415; 82950; 85014; 85018

== ENCOUNTER → 2022-08-03 08:48 | Outpatient (CLI) | payer OTHER, SELFPAY ==
[2022-08-03 11:05] LABS: Glucose Fasting Gestational 71 mg/dL (76-95)
[2022-08-03 11:13] LABS: Glucose 1 Hour Gest 146 mg/dL (76-180)
[2022-08-03 12:04] LABS: Glucose 2 Hour Gest 104 mg/dL (76-155)
[2022-08-03 15:26] LABS: Glucose Tol Interp,Gestational INTERPRETATION
[2022-08-03 15:33] LABS: Glucose 3 Hour Gest 132 mg/dL (76-140)
== END ==
PROVIDERS: Referring Provider Obstetrics & Gynecology; Visit Provider Obstetrics & Gynecology
DX: O99.810 Abnormal glucose complicating pregnancy (principal); O26.899 Other specified pregnancy related conditions, unspecified trimester; Z67.91 Unspecified blood type, Rh negative; Z3A.00 Weeks of gestation of pregnancy not specified
CPT/HCPCS: 36415; 82951; 82952; 86850

== ENCOUNTER 2022-09-27 15:34 | Outpatient (CLI) | payer OTHER, SELFPAY ==
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
== END 2022-09-27 16:36 | disposition home or self-care (01) ==
LOC: LABOR 16:00 → OB 10-14 13:37
PROVIDERS: Referring Provider Family Medicine; Visit Provider Family Medicine
DX: O36.8130 Decreased fetal movements, third trimester, not applicable or unspecified (principal); Z3A.34 34 weeks gestation of pregnancy
CPT/HCPCS: 59025; G0378; G0379

== ENCOUNTER → 2022-10-19 14:28 | Outpatient (CLI) | payer OTHER, SELFPAY ==
[2022-10-20 15:07] LABS: Strep Grp B PCR NEG for Grp B Strep
== END ==
PROVIDERS: PCP Family Medicine; Visit Provider Obstetrics & Gynecology
DX: Z34.83 Encounter for supervision of other normal pregnancy, third trimester (principal); Z3A.37 37 weeks gestation of pregnancy
CPT/HCPCS: 87653

== ENCOUNTER 2022-10-21 05:42 | Inpatient (IN) | payer OTHER, SELFPAY ==
[2022-10-21 07:37] VITALS: BP 102/59
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
[2022-10-21] MEDS: CITRIC ACID/SODIUM CITRATE 15 ML SOLUTION 30 ML PO (07:45)
[2022-10-21 07:48] LABS: Add Manual Diff / Slide Review NO; Basophils Absolute Auto 0 /uL (0-100); Basophils Percent Auto 0.3 % (0-2); Eosinophils Absolute Auto 100 /uL (0-450); Hematocrit 32.6 % (36-46); Hemoglobin 11.1 g/dL (12.0-16.0); Lymphocytes Absolute Auto 2200 /uL (1100-4500); Lymphocytes Percent Auto 24.8 % (25-40); Mean Corpuscular HGB Conc 33.9 % (30-36); Mean Corpuscular Hemoglobin 27.7 PG (26-34); Mean Corpuscular Volume 81.6 fL (80-100); Monocytes Absolute Auto 700 /uL (0-900); Monocytes Percent Auto 7.6 % (3-14); Neutrophils Absolute Auto 5800 /uL (1500-7000); Neutrophils Percent Auto 66.3 % (50-75); Platelet Count 280 X10^3/uL (150-400); Red Cell Distribution Width 14.3 % (11.6-14.8); White Blood Cell Count 8.8 X10^3/uL (4.5-11.0)
--- NOTE | 2022-10-21 07:50 | PM.PREOP ---
Pre-operative Note COVID-19 Criteria for continued procedure: Non-surgical alternatives not available or appropriate per current SOC Interval Note History & Physical reviewed/Exam performed by Physician: Yes Changes to H&P: No H&P completed within 30 days and has changed as indicated here:: 10/21/22
[2022-10-21] MEDS: CEFAZOLIN 2 GM/100 ML PREMIX 100 ML IV (07:55)
--- NOTE | 2022-10-21 08:23 | SUR.OPER ---
vIABLE MALE INFANT DELIVERED AT 0823. CORD BLOOD AND PLACENTA TO OB WITH RN.
--- NOTE | 2022-10-21 08:59 | P.OP_ITS ---
Operative Date/Time/Diagnoses Date of procedure: 10/21/22 Time of procedure: 09:00 Pre-op diagnosis: Estimated gestational age of 38 weeks History of placental abruption Previous section Keloid scar Post-op diagnosis: same Procedure & Clinicians Procedure: Repeat low-transverse section Scar revision Same procedure as scheduled: Yes Indications: Estimated gestational age of 38 weeks Previous placental abruption, maternal medicine recommends delivery at 38 weeks Previous section Keloid scar Surgeon: Hawa Wright Yes if Unassisted: No Orthopedic Physician Assistant: Evelin Slade Reason for Orthopedic Physician Assistant: The medical assistant instructor was necessary for retraction on entry into the abdomen and uterus. She assisted with fundal pressure for delivery of the . She assisted with closure with retraction and clipping of suture. She closed the contralateral fascia. Anesthesia Type: Spinal (With Duramorph) Operative Notes Findings: Live male infant in the [facility] presentation Normal uterus, tubes, and ovaries Cord around the foot Closure Type: primary Specimen(s): cord blood and placenta Intraoperative meds administered: Duramorph, Ketorolac and Pitocin Applied: Catheter (To continuous drainage, 100 cc of clear yellow urine) Estimated Blood Loss (mL): 350 Blood products transfused: none Procedure in detail: The patient was taken to the operating room where she was placed in the seated position. Spinal anesthesia with Duramorph was administered. She was placed in the dorsal supine position with a leftward tilt, and prepped and draped in the usual sterile fashion. A time-out was performed. The previous incision was excised in an elliptical fashion with a #10 blade. The incision was carried down to the underlying layer of fascia. The fascia was nicked in the midline and the incision extended bilaterally with the Stovall scissors. The superior aspect of the fascial incision was grasped with the Shadi clamps, elevated, and the underlying rectus muscles dissected off sharply and bluntly. The inferior aspect of this incision was grasped with the Shadi clamps, elevated, and the underlying rectus muscles dissected off sharply and bluntly. The rectus muscles were in the midline. The peritoneum was grasped between hemostats, and entered sharply with the Metzenbaum scissors. This incision was extended superiorly and inferiorly with good visualization of the bladder. The bladder blade was inserted. The vesicouterine peritoneum was grasped with a pickup and entered sharply with the Metzenbaum scissors. This incision was extended bilaterally, and the bladder flap created digitally. The bladder blade was reinserted. The lower uterine segment was incised in a transverse fashion. Upon entering the amniotic sac there was a large amount of clear amniotic fluid. The incision was extended bluntly. The infant's head was delivered with vacuum assistance. The nose and mouth were suctioned with bulb suction. The remainder of the body delivered without difficulty. A cord around the foot was reduced. After 1 minute, the cord was double clamped and cut. Pitocin was given in the IV fluids. The placenta was expressed. The uterus was cleared of all clots and debris. The uterine incision was repaired with # 1 Chromic in a running interlocking fashion. A second layer the same suture was used for an imbricating layer. Hemostasis was achieved. The tubes and ovaries were examined and were found to be normal. The gutters were cleared of all clots and debris. The bladder flap was reapproximated using 2-0 Vicryl in a running fashion. Parietal peritoneum was closed using 2 0 Vicryl in a running fashion. The fascia was reapproximated using 0 Vicryl in a running fashion. Hemostasis was achieved in the subcutaneous layer using the Bovie. The subcutaneous layer was copiously irrigated with warm normal saline. Five simple interrupted sutures with 3-0 Vicryl were placed to reapproximate the subcutaneous layer. 4- 0 Monocryl was used in a subcuticular fashion to close the skin. Steri-Strips and an Aquacel dressing were placed. The uterus was expressed of a small amount of old blood. The uterus was marked 2 fingerbreadths below the umbilicus. Sponge, lap, and instrument counts were correct x2. The patient tolerated the procedure well, and was taken to PACU in stable condition. Urine output: 100 cc clear yellow Crystalloid: 1200 cc Complications: none [place] Baby 1: Infant Gender: Male Presentation: vertex Position: Right Occiput Anterior Placental Delivery Description: Expressed Cord Vessel Description: 3 Vessels, Clamped/Cut (After 1 minute) and Around Body x1 (Left foot) score (1 min): 8 score (5 min): 9 weight: 6 lb 14 oz Post-operative Condition: stable Disposition: PACU Aftercare: routine postop
[2022-10-21 09:05] VITALS: BP 114/58; PULSE 112; RESP 16; TEMP 36.2; O2SAT 98
[2022-10-21 09:10] VITALS: BP 110/70; PULSE 110; RESP 16; O2SAT 98
[2022-10-21 09:25] VITALS: BP 120/70; PULSE 102; RESP 16; TEMP 36.9; O2SAT 98
[2022-10-21] MEDS: ACETAMINOPHEN 325 MG TABLET 650 MG PO ×2 (11:23→17:39)
[2022-10-21] MEDS: LACTATED RINGERS 1,000 ML 999 ML IV (11:24)
[2022-10-21] MEDS: KETOROLAC 30 MG/ML VIAL IV ×2 (15:07→21:10)
[2022-10-21 15:27] VITALS: BP 95/58; PULSE 74; RESP 16; TEMP 37
[2022-10-22] MEDS: ACETAMINOPHEN 325 MG TABLET 650 MG PO ×2 (00:20→06:46)
[2022-10-22] MEDS: KETOROLAC 30 MG/ML VIAL IV (03:17)
[2022-10-22 06:45] LABS: Hematocrit 28.6 % (36-46); Hemoglobin 9.9 g/dL (12.0-16.0)
[2022-10-22] MEDS: DOCUSATE 100 MG CAPSULE PO (09:22)
[2022-10-22] MEDS: PRENATAL VIT,CALC/IRON/FOLIC 1 TABLET 1 TAB PO (09:22)
[2022-10-22] MEDS: IBUPROFEN 600 MG TABLET PO (11:36)
== END 2022-10-22 14:50 | disposition home or self-care (01) | DRG 787 ==
PROVIDERS: Admitting Provider Obstetrics & Gynecology; PCP Family Medicine; Referring Provider Obstetrics & Gynecology; Visit Provider Obstetrics & Gynecology
PROC: 10D00Z1 Extraction of Products of Conception, Low, Open Approach (ICD-10-PCS; CPT 59514; principal; 2022-10-21 07:45)
DX: O34.211 Maternal care for low transverse scar from previous cesarean delivery (principal); O36.0130 Maternal care for anti-D [Rh] antibodies, third trimester, not applicable or unspecified; Z87.59 Personal history of other complications of pregnancy, childbirth and the puerperium; Z67.41 Type O blood, Rh negative; Z3A.38 38 weeks gestation of pregnancy; Z37.0 Single live birth; O99.892 Other specified diseases and conditions complicating childbirth; L91.0 Hypertrophic scar; O28.5 Abnormal chromosomal and genetic finding on antenatal screening of mother
CPT/HCPCS: 36415; 59050; 59510; 59514; 85014; 85018; 85025; 86850; 86870; 86900; 86901; J0690; J1885; J2274; J2405; J2590